=== PATIENT | female | born 2000 | race Two or more races ===

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

== ENCOUNTER 2024-09-27 16:30 | Emergency (ER) | payer MEDICAID, SELFPAY ==
[2024-09-27 16:31] VITALS: BMI 31.3
[2024-09-27 16:45] VITALS: BP 144/85; PULSE 100; RESP 19; TEMP 37.1; O2SAT 98
--- NOTE | 2024-09-27 16:57 | PD.EDBACK ---
ED Back Injury Pain RME/HPI General Chief Complaint: Back Pain/Injury Stated Complaint: BACK AND LEFT LEG PAIN x 8 MONTHS Time Seen by Provider: 09/27/24 16:33 Source: patient, RN notes reviewed and old records reviewed Arrival date/time: 09/27/24 16:30 Mode of arrival: ambulatory Limitations: no limitations RME / HPI RME / HPI Narrative: 24yof presents to ED for left lower back pain radiating down LLE x3-4 weeks worsening the past few days. No preceding injury or fall. Patient was evaluated by pcp today for symptoms; prescribed meds sent to pharmacy but patient states meds are not ready. No n/v, abdominal pain, LE weakness, numbness/tingling or bowel/bladder incontinence reported. Patient took ibuprofen this morning with mild relief. Related Data Home Medications ?Medication ?Instructions ?Recorded ?Confirmed vitamin no.45-iron-FA 28 1 tab PO QDAY 12/19/23 02/04/24 mg iron-1 mg chewable tablet Allergies Allergy/AdvReac Type Severity Reaction Status Date / Time No Known Allergies Allergy Verified 09/27/24 16:34 Review of Systems Review of Systems Systems Reviewed: All systems reviewed, normal except as documented Gastrointestinal Gastrointestinal: Denies abdominal pain and Denies fecal incontinence Genitourinary Genitourinary: Denies urinary incontinence Musculoskeletal Musculoskeletal: Reports back pain, Denies numbness and Denies tingling Neurologic Neurologic: Denies localized weakness, Denies numbness and Denies tingling Past Medical History Surgical History SURGICAL: Positive Section Social History SMOKING STATUS: Never smoker SUBSTANCE USE: does not use ALCOHOL: Current (Social) Past Medical History Comments PMH COMMENT: Denies past medical history ED Exam General Limitations: Present no limitations General appearance: Present alert and in no apparent distress Head Head exam: Present atraumatic and normocephalic Eye Eye exam: Present normal appearance, PERRL and EOMI ENT ENT exam: Present normal exam and mucous membranes moist Neck Neck exam: Present normal inspection and full ROM Chest Chest inspection: Present normal inspection and symmetric chest wall rise Respiratory Respiratory exam: Present normal lung sounds bilaterally; Absent respiratory distress Cardiovascular Cardiovascular exam: Present regular rate and normal rhythm Abdominal Exam Abdominal exam: Present soft; Absent distention or tenderness Extremities Exam Extremities exam: Present normal inspection and full ROM Back Exam Back exam: Present full ROM and paraspinal tenderness (left lumbar); Absent vertebral tenderness Neurological Exam Neurological exam: Present alert, oriented X3, normal gait and other (No saddle anesthesia); Absent motor sensory deficit Psychiatric Psychiatric exam: Present normal affect and normal mood Skin Skin exam: Present warm, dry, intact and normal color Course Quality Measures none Orders Category Date Time Status Acetaminophen Tab [Tylenol ES Tab] Med 09/27/24 16:58 Discontinued 1,000 mg PO X1 ONE CYCLObenzaPRINE [Flexeril] Med 09/27/24 16:58 Discontinued 5 mg PO X1 ONE Dexamethasone Inj [Decadron Inj] Med 09/27/24 16:58 Discontinued 10 mg PO X1 ONE Ketorolac Inj [Toradol Inj] Med 09/27/24 16:58 Discontinued 30 mg IM X1 ONE Vital Signs Vital signs: Vital Signs Temperature 98.8 F 09/27/24 16:45 Pulse Rate 100 09/27/24 16:45 Respiratory Rate 19 09/27/24 16:45 Blood Pressure 144/85 H 09/27/24 16:45 Pulse Oximetry (%) 98 09/27/24 16:45 Oxygen Delivery Method Room Air 09/27/24 16:45 Back Pain / Injury MDM Narrative MDM Narrative:: 24yof presents to ED for left lower back pain radiating down LLE x3-4 weeks worsening the past few days. No preceding injury or fall. Patient was evaluated by pcp today for symptoms; prescribed meds sent to pharmacy but patient states meds are not ready. No n/v, abdominal pain, LE weakness, numbness/tingling or bowel/bladder incontinence reported. Patient took ibuprofen this morning with mild relief. Patient reassessed. Pain improved after medications administered. Patient is neurologically intact, able to ambulate without difficulty. Encouraged rest, pain mgmt, ice/heat application prn. Stable for dc, RTED precautions given. Patient data External records reviewed:: [facility] previous records (admit 02/04/24 for anemia complicating childbirth) Clinical information provided by:: patient Social determinants that could affect healthcare access:: none Patient has the following chronic illnesses:: none How is presenting disease/condition affected by chronic disease/condition?: no chronic disease Evaluation data The following diagnostics were reviewed and interpreted by me:: other (specify) (none) Lab and/or radiology exams considered but not ordered:: lumbar xrays: no history of injury/trauma, no midline tenderness Interpretation Summary: na Medications / Prescriptions Medications or Prescriptions considered but not ordered:: none Medication administrations:: Medication Administration History Discontinued Medications Acetaminophen (Acetaminophen 500 Mg Tablet) 1,000 mg PO X1 ONE Stop: 09/27/24 16:59 Last Admin: 09/27/24 17:14 Dose: 1,000 mg Documented By: Cyclobenzaprine HCl (Cyclobenzaprine 5 Mg Tablet) 5 mg PO X1 ONE Stop: 09/27/24 16:59 Last Admin: 09/27/24 17:16 Dose: 5 mg Documented By: Dexamethasone Sodium Phosphate (Dexamethasone Sod Phos Inj 10 Mg/Ml Vial) 10 mg PO X1 ONE Stop: 09/27/24 16:59 Last Admin: 09/27/24 17:16 Dose: 10 mg Documented By: Ketorolac Tromethamine (Ketorolac Inj 60 Mg/2 Ml Vial) 30 mg IM X1 ONE Stop: 09/27/24 16:59 Last Admin: 09/27/24 17:17 Dose: 30 mg Documented By: above medications administered in ED Consultations Consultation(s) initiated? (list below): No Diagnosis Differential diagnosis back pain/injury: lumbar radiculopathy, sciatica and strain of lumbar region Most likely diagnosis given after review of the tests above:: left sciatica Admission Indicated Admission indicated?: not indicated Admission Request Was there a request for admission?: No Disposition Plan Disposition Plan: Discharge Discharge Attestation Discharge Attestation: The patient and all family members were given an opportunity to ask questions and understood the discharge instructions. Discharge instructions specifically effects, indications for sooner follow up or return to the emergency department, and the expected course of current diagnosis. Patient condition: Stable Discharge Plan Plan Patient Disposition: HOME (Self Care) Patient condition on transfer: Stable Prescriptions/Referrals Prescriptions/Med Rec: No Action vitamin #45-iron-FA 28 mg iron- 1 mg Tablet,Chewable 1 tab PO QDAY Referrals: No Primary/Family,Physician [Referring Provider] - In 1 week Problem List Clinical Impression: Acute left-sided back pain with sciatica Patient/Caregiver Discharge Instructions Education Materials: ED Sciatica Additional Instructions: supervisor respiratory prescriptions at pharmacy prescribed by your PCP today. Ice/heat application may also provide some relief. Print Language: Georgian Stand Alone Forms: Latonia Award Info., Patient Portal Info Letter PA/CONSUMER LENDING MANAGER Supervising Physician GRICELDA/CONSUMER LENDING MANAGER Supervising Physician: Larisa
[2024-09-27] MEDS: ACETAMINOPHEN 500 MG TABLET 1000 MG PO (17:14)
[2024-09-27] MEDS: CYCLObenzaPRINE 5 MG TABLET PO (17:16)
[2024-09-27] MEDS: DEXAMETHASONE SOD PHOS INJ 10 MG/ML VIAL PO (17:16)
[2024-09-27] MEDS: KETOROLAC INJ 60 MG/2 ML VIAL 30 MG IM (17:17)
== END 2024-09-27 18:01 | disposition home or self-care (01) ==
PROVIDERS: Emergency Provider Emergency Medicine; PCP Family Medicine
DX: M54.42 Lumbago with sciatica, left side (principal)
CPT/HCPCS: 96372; 99283; J1100; J1885; A9270

== ENCOUNTER 2025-03-07 04:31 | Emergency (ER) | payer MEDICAID, SELFPAY ==
[2025-03-07 04:32] VITALS: BMI 31.1
--- NOTE | 2025-03-07 04:43 | EKG_ITS ---
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
[2025-03-07 04:45] VITALS: BP 137/90; PULSE 99; RESP 18; TEMP 37.1; O2SAT 98
--- NOTE | 2025-03-07 05:46 | XR_ITS ---
Examination: PA lateral chest 2 views TECHNIQUE: Upright PA and lateral chest 2 views Date and time: March 07, 2025 0652 hours INDICATIONS: Shortness of breath or pain beginning 2 days ago FINDINGS: Normal heart size Lungs are clear. The osseous structures are intact IMPRESSION: No active disease
--- NOTE | 2025-03-07 05:46 | PD.EDRME ---
Rapid Medical Screening Exam [facility] Arrival date/time: 03/07/25 04:31 24F with history of anxiety presents to ED with several days of throat pain that radiates downward, as well as some N/V. Chief Complaint: Chest Pain Vital signs: Vital Signs Temperature 98.7 F 03/07/25 04:45 Pulse Rate 99 03/07/25 04:45 Respiratory Rate 18 03/07/25 04:45 Blood Pressure 137/90 H 03/07/25 04:45 Pulse Oximetry (%) 98 03/07/25 04:45 Oxygen Delivery Method Room Air 03/07/25 04:45
[2025-03-07] MEDS: LIDOCAINE VISCOUS 2% 15 ML UDC PO (06:47)
[2025-03-07] MEDS: ONDANSETRON ODT 4 MG TABRAP PO (06:47)
[2025-03-07 07:01] LABS: Strep A Rapid Negative (Negative)
[2025-03-07 07:18] LABS: Basophils % (Auto) 0 % (0-2.5); Eosinophils # (Auto) 0.1 Thou/mm3 (0.0-0.5); Eosinophils % (Auto) 1 % (0-10); Hematocrit 41.2 % (36.0-46.0); Hemoglobin 14.4 g/dL (12.0-16.0); Immature Granulocytes % (Auto) 0 % (0-0); Immature Granulocytes Auto 0.01 Thou/mm3 (0.00-0.00); Lymphocytes # (Auto) 1.6 Thou/mm3 (1.0-4.8); Lymphocytes % (Auto) 19 % (10-50); Mean Corpuscular Volume 89 fL (80-100); Monocytes # (Auto) 0.5 Thou/mm3 (0.0-0.8); Monocytes % (Auto) 5 % (0-12); Neutrophils # (Auto) 6.3 Thou/mm3 (1.8-7.7); Neutrophils % (Auto) 75 % (37-80); Nucleated Red Blood Cell % 0 /100 WBC (0); Platelet Count 318 Thou/mm3 (140-440); RDW Standard Deviation 44.2 fL (36.4-46.3); Red Blood Count 4.64 Miln/mm3 (4.00-5.20); White Blood Count 8.5 Thou/mm3 (3.6-11.0)
[2025-03-07 07:28] LABS: HCG,Qualitative Serum Negative
[2025-03-07 07:36] LABS: Alanine Aminotransferase 14 U/L (10-49); Albumin, Serum 4.7 gm/dL (3.5-5.0); Albumin/Globulin Ratio 1.7 (1.2-2.2); Alkaline Phosphatase 87 U/L (46-116); Anion Gap 11 (7-16); Aspartate Amino Transferase 22 U/L (0-34); BUN/Creatinine Ratio 11 Ratio (12-20); Bilirubin,Total 0.8 mg/dL (0.3-1.2); Blood Urea Nitrogen 9 mg/dL (9-23); Calcium 9.2 mg/dL (8.3-10.6); Calcium (Corrected) 9.2 mg/dL (8.5-10.1); Carbon Dioxide 27.4 mMol/L (20.0-31.0); Chloride 106 mMol/L (98-107); Creatinine (Component) 0.8 mg/dL (0.6-1.3); Estimated Creatinine Clearance 92.2 mL/min (>60); Globulin 2.8 gm/dL (2.3-3.5); Glucose 110 mg/dL (74-106); Lipase 31 U/L (12-53); Osmolality,Calculated 286 (275-295); Potassium 3.4 mMol/L (3.4-5.1); Sodium 144 mMol/L (136-145); Total Protein 7.5 gm/dL (5.7-8.2); Troponin I < 0.002 ng/mL (0.0-0.045); eGFR > 60 See Note
--- NOTE | 2025-03-07 07:47 | PD.EDCHEST ---
ED Chest Pain RME/HPI General Chief Complaint: Chest Pain Stated Complaint: CHEST PAIN/NECK PAIN Time Seen by Provider: 03/07/25 06:18 Arrival date/time: 03/07/25 04:31 24F with history of anxiety presents to ED with several days of throat pain that radiates downward, as well as some N/V. Limitations: no limitations RME / HPI RME / HPI narrative: 03/07/25 04:31 24F with history of anxiety presents to ED with several days of throat pain that radiates downward, as well as some N/V. Related Data Home Medications ?Medication ?Instructions ?Recorded ?Confirmed vitamin no.45-iron-FA 28 1 tab PO QDAY 12/19/23 02/04/24 mg iron-1 mg chewable tablet Allergies Allergy/AdvReac Type Severity Reaction Status Date / Time No Known Allergies Allergy Verified 03/07/25 04:40 Review of Systems Review of Systems Systems Reviewed: All systems reviewed, normal except as documented Constitutional Constitutional: Reports system reviewed and no additional complaints, except as documented, Denies fever(s) and Denies headache(s) Eyes Eyes: Reports system reviewed and no additional complaints, except as documented and Denies blurry vision ENT Ears, Nose, Mouth, and Throat: Reports system reviewed and no additional complaints, except as documented, Denies headache(s), Reports nasal congestion, Reports nasal discharge and Reports sore throat Cardiovascular Cardiovascular: Reports system reviewed and no additional complaints, except as documented, Reports chest pain and Denies dyspnea Respiratory Respiratory: Reports system reviewed and no additional complaints, except as documented, Denies chest congestion, Denies cough and Denies dyspnea Gastrointestinal Gastrointestinal: Reports system reviewed and no additional complaints, except as documented and Denies abdominal pain Integumentary/Breasts Skin/Breast: Reports system reviewed and no additional complaints, except as documented and Denies rash Neurologic Neurologic: Reports system reviewed and no additional complaints, except as documented, Reports as per HPI and Denies headache(s) Past Medical History Past Medical History NEUROLOGIC: Negative Neurological Disorders or Seizures CARDIAC: Negative Cardiac Disorders or Congestive Heart Failure RESPIRATORY: Negative Chronic Obstructive Pulmonary Disease (COPD) or Asthma GASTROINTESTINAL: Positive Gastrointestinal Disorders and Ulcer (parents) GENITOURINARY: Negative Renal Disease MUSCULOSKELETAL: Negative Musculoskeletal Disorders ENDOCRINE: Negative Diabetes Mellitus Type 1 or Diabetes Mellitus Type 2 HEMATOLOGIC: Negative Sickle Cell Disease PSYCHO/SOCIAL: Positive Depression (7 years old, meds at 15 years old, off meds at 18) and Anxiety (7 years old, meds at 15 years old, off meds at 18) OTHER HISTORY: Negative Autoimmune Disease, Blood Transfusions, Blood Transfusion Reaction or Anesthesia Reactions Family History FAMILY HISTORY: Positive Family Cancer; Negative Family Psychiatric Problems, Family Respiratory Disorders, Family Cardiac Disorders, Family Gastrointestinal Problems, Family Surgery or Family Anesthesia Reaction Surgical History SURGICAL: Positive Section Social History SMOKING STATUS: Never smoker SUBSTANCE USE: does not use ED Exam General Limitations: Present no limitations General appearance: Present alert and in no apparent distress Head Head exam: Present atraumatic, normocephalic and normal inspection Eye Eye exam: Present normal appearance, PERRL and EOMI; Absent conjunctival injection ENT ENT exam: Present normal exam, normal oropharynx and mucous membranes moist Neck Neck exam: Present normal inspection, full ROM and trachea midline Chest Chest inspection: Present normal inspection and symmetric chest wall rise Respiratory Respiratory exam: Present normal lung sounds bilaterally; Absent respiratory distress, wheezes, stridor or accessory muscle use Cardiovascular Cardiovascular exam: Present regular rate, normal rhythm and normal heart sounds Abdominal Exam Abdominal exam: Present soft and normal bowel sounds; Absent distention, tenderness, guarding, rebound or rigidity Extremities Exam Extremities exam: Present normal inspection and full ROM Back Exam Back exam: Present normal inspection and full ROM Neurological Exam Neurological exam: Present alert, oriented X3 and CN II-XII intact Psychiatric Psychiatric exam: Present normal affect and normal mood Skin Skin exam: Present warm, dry, intact and normal color Course Quality Measures none Orders Category Date Time Status EKG (ED ONLY) *Do not use* NOW Care 03/07/25 04:43 Completed EKG (ED Only) Stat Exams 03/07/25 04:43 Draft XR chest 2V Stat Exams 03/07/25 05:46 Completed CBC Stat Lab 03/07/25 06:35 Completed Comprehensive Metabolic Panel Stat Lab 03/07/25 06:35 Completed HCG,Qualitative Serum Stat Lab 03/07/25 06:35 Completed Lipase Stat Lab 03/07/25 06:35 Completed Strep A Rapid Stat Lab 03/07/25 05:52 Completed Troponin I Stat Lab 03/07/25 06:35 Completed Lidocaine 2% Viscous [Xylocaine 2% Viscous] Med 03/07/25 05:46 Discontinued 15 ml PO X1 ONE Ondansetron Odt [Zofran Odt] Med 03/07/25 05:46 Discontinued 4 mg PO X1 ONE Vital Signs Vital signs: Vital Signs Temperature 98.7 F 03/07/25 04:45 Pulse Rate 99 03/07/25 04:45 Respiratory Rate 18 03/07/25 04:45 Blood Pressure 137/90 H 03/07/25 04:45 Pulse Oximetry (%) 98 03/07/25 04:45 Oxygen Delivery Method Room Air 03/07/25 04:45 O2 saturation 98% room air with normal limits Procedures -ED EKG Interpretation #1: Date of EK03/07/25 Time of EK:46 Rate: 92 Interpretation: Interpreted by me EKG Impression: Normal sinus rhythm, No ectopy, No ischemic changes, Normal QRS, Normal intervals and Non-specific ST-T Chest Pain MDM Narrative MDM Narrative:: 24F with history of anxiety presents to ED with several days of throat pain that radiates downward, as well as some N/V. On exam patient well-appearing patient does not appear toxic in no acute distress Lab work imaging and EKG obtained no acute emergent findings noted Patient discharged home in no distress to follow-up with primary care doctor in the next 24 to 48 hours and for any worsening symptoms to return to the ER immediately Patient data External records reviewed:: [facility] previous records Clinical information provided by:: patient Social determinants that could affect healthcare access:: none Patient has the following chronic illnesses:: none How is presenting disease/condition affected by chronic disease/condition?: no chronic disease Evaluation data The following diagnostics were reviewed and interpreted by me:: lab results, radiology exam(s) and EKG tracing(s) Lab and/or radiology exams considered but not ordered:: Labs, radiology, EKG obtained Interpretation Summary: Reviewed by me Medications / Prescriptions Medications or Prescriptions considered but not ordered:: Given Medication administrations:: Medication Administration History Discontinued Medications Lidocaine HCl (Lidocaine Viscous 2% 15 Ml Udc) 15 ml PO X1 ONE Stop: 03/07/25 05:47 Last Admin: 03/07/25 06:47 Dose: 15 ml Documented By: HARRIET Ondansetron HCl (Ondansetron Odt 4 Mg Tabrap) 4 mg PO X1 ONE; Protocol Stop: 03/07/25 05:47 Last Admin: 03/07/25 06:47 Dose: 4 mg Documented By: PINOR Given Consultations Consultation(s) initiated? (list below): No Diagnosis Chest Pain Differential Diagnosis: fracture of rib, pneumothorax, stable angina, atypical chest pain, st elevation myocardial infarction, costochondritis, chest pain and biliary colic Most likely diagnosis given after review of the tests above:: Chest pain, sore throat Admission Indicated Admission indicated?: not indicated Admission Request Was there a request for admission?: No Disposition Plan Disposition Plan: Discharge Discharge Attestation Discharge Attestation: The patient and all family members were given an opportunity to ask questions and understood the discharge instructions. Discharge instructions specifically effects, indications for sooner follow up or return to the emergency department, and the expected course of current diagnosis. Patient condition: Stable Discharge Plan Plan Patient Disposition: HOME (Self Care) Discharge Disposition comment: Stable Prescriptions/Referrals Prescriptions/Med Rec: No Action vitamin #45-iron-FA 28 mg iron- 1 mg Tablet,Chewable 1 tab PO QDAY Referrals: Jona Sharp MD [Primary Care Provider] - 03/09/25 Problem List Clinical Impression: Chest pain, Sore throat Patient/Caregiver Discharge Instructions Education Materials: Medicine for Pain Additional Instructions: Please follow up with your primary care doctor in the next 24-48hrs for any worsening symptoms return here immediately Print Language: Faroese Stand Alone Forms: Latonia Award Info., Work/School Release, Patient Portal Info Letter PA/DEVELOPER EVANGELIST Supervising Physician PA/TELLO Supervising Physician: dr [email or web address]
== END 2025-03-07 07:58 | disposition home or self-care (01) ==
PROVIDERS: Nurse Practitioner Primary Care; Physician Assistant; Emergency Provider Emergency Medicine; PCP Family Medicine
DX: R07.9 Chest pain, unspecified (principal); J02.9 Acute pharyngitis, unspecified
CPT/HCPCS: 36415; 71046; 80053; 83690; 84484; 84703; 85025; 87651; 93005; 99283; J3490; Q0162